=== PATIENT | male | born 2000 | race Caucasian/White ===

== ENCOUNTER 2018-02-13 02:12 | Emergency (ER) | payer OTHER, BC ==
[~2018-02-13] VITALS: Ht 195.6 cm; Wt 147.7 kg
[~2018-02-13 02:12] MED LIST: ABILIFY2 MG PO; ADDERALL10 MG PO; BUPROPION XL150 MG; LATUDA20 MG PO; LITHIUM CARBON300 M2; MULTIVITAMIN; NASONEX17 GM; NEOMYCIN-POLYMY10 M1 TP; TAB-A-VITE1 EACH PO; VENLAFAXINE HCL75 M3; WELLBUTRIN XL300 MG PO; ZOLOFT50 MG PO; ZYRTEC
[2018-02-13 03:01] LABS: HEMATOCRIT 40.7 % (38.0-50.0); HEMOGLOBIN 14.4 G/DL (12.5-16.6); MCH 27.5 PG (29.0-34.0); MCHC 35.4 G/DL (30.0-36.0); MCV 77.8 FL (86-99); PLATELET COUNT 221 K/uL (156-360); RBC DIS.WIDTH-CV 13.1 % (11.8-14.6); RBC DIS.WIDTH-SD 36.9 % (39-53); RED BLOOD COUNT 5.23 M/uL (4.00-5.50); WHITE BLOOD COUNT 13.3 K/uL (4.1-10.2)
[2018-02-13 03:20] LABS: CHLORIDE 102 MEQ/L (99-109); GFR ESTIMATE (CALCULATED) > 59 mL/min/ (58.99-99999); GLUCOSE 93 mg/dL (70-99); MAGNESIUM 1.9 mg/dl (1.3-2.7); POTASSIUM 3.6 MEQ/L (3.7-5.4); SODIUM 138 MEQ/L (136-147); TROP-I INTERPRETATION NEGATIVE; TROPONIN-I < 0.01 ng/mL (0.0-0.30); UREA NITROGEN (BUN) 14 mg/dL (9-23)
[2018-02-13 03:29] LABS: APPEARANCE CLEAR ((CLEAR)); BILIRUBIN NEGATIVE; BLOOD NEGATIVE; COLOR YELLOW ((YELLOW)); GLUCOSE (STRIP) NEGATIVE; KETONES NEGATIVE; LEUKOCYTES NEGATIVE; NITRITE NEGATIVE; PROTEIN (STRIP) 30; SPECIFIC GRAVITY 1.027 (1.000-1.030); UROBILINOGEN 0.2 MG/DL (0.2-1.0)
[2018-02-13 03:39] LABS: AMPHETAMINE NEGATIVE (500 ng/mL); BARBITURATES NEGATIVE (200 ng/mL); BENZODIAZEPINES NEGATIVE (150 ng/mL); BUPRENORPHINE NEGATIVE (10 ng/mL); COCAINE NEGATIVE (150 ng/mL); METHADONE NEGATIVE (200 ng/mL); METHAMPHETAMINE NEGATIVE (500 ng/mL); OPIATES (MORPHINE) NEGATIVE (100 ng/mL); OXYCODONE NEGATIVE (100 ng/mL); PHENCYCLIDINE NEGATIVE (25 ng/mL); PROPOXYPHENE NEGATIVE (300 ng/mL); THC CANNABINOIDS PRESUMPTIVE POSITIVE (50 ng/mL); TRICYCLIC ANTIDEPRESSANTS NEGATIVE (300 ng/mL)
[2018-02-13] MEDS ORDERED: ZANTAC300 MG PO (06:12)
[2018-02-13] MEDS ORDERED: NAPROSYN500 MG PO (06:12)
[2018-02-13 06:25] LABS: TROP-I INTERPRETATION NEGATIVE; TROPONIN-I < 0.01 ng/mL (0.0-0.30)
[2018-02-13 06:41] VITALS: BP 124/62
== END 2018-02-13 06:42 | disposition home or self-care (01) ==
LOC: EME → EDBD 02:12 → EME 02:12
PROVIDERS: Physician Assistant
DX: R07.89 Other chest pain (principal); E66.01 Morbid (severe) obesity due to excess calories; F32.9 Major depressive disorder, single episode, unspecified; F41.9 Anxiety disorder, unspecified; F84.5 Asperger's syndrome; F90.9 Attention-deficit hyperactivity disorder, unspecified type
CPT/HCPCS: 71046; 80048; 81003; 83735; 84484; 84999; 85027; 93005; 99281; 99285; J1885